=== PATIENT | female | born 1985 | race Caucasian/White ===

== ENCOUNTER 2020-07-07 06:31 | Day surgery (SDC) | payer OTHER ==
[~2020-07-07 06:31] MED LIST: Lactated Ringers 1,000 ML IV SCH; Sodium Chloride 0.9% 10 ML SDV IV PRN; Sodium Chloride 0.9% 10 ML Syringe FLUSH PRN; Sodium Chloride 0.9% 2.5 ML Syringe FLUSH PRN; ceFAZolin 2 GM in Premix Bag 1 BAG IV ONE
[2020-07-07] MEDS ORDERED: Propofol 200 MG/20 ML SDV ONE ×2 (06:53→07:16)
[2020-07-07] MEDS ORDERED: fentaNYL 100 MCG/2 ML SDV ONE ×2 (06:53→07:16)
[2020-07-07] MEDS ORDERED: Midazolam 1 MG/ML 2 ML SDV ONE ×2 (06:54→07:17)
--- NOTE | 2020-07-07 07:13 | PCM.PREANE ---
Preanesthetic Assessment - Anesthesia/Transfusion/Family Hx Anesthesia History: Prior Anesthesia Without Reaction Family History of Anesthesia Reaction: No Transfusion History: No Prior Transfusion(s) - Review of Systems General: No Symptoms Pulmonary: No Symptoms Cardiovascular: No Symptoms Gastrointestinal: No Symptoms Neurological: No Symptoms Other: Reports: None - Physical Assessment NPO Status Date: 07/06/20 Height: 5 ft 7 in Weight: 77.111 kg ASA Class: 2 Mental Status: Alert & Oriented x3 Airway Class: Mallampati = 2 Dentition: Reports: Normal Dentition ROM/Head Extension: Full Lungs: Clear to Auscultation, Normal Respiratory Effort Cardiovascular: Regular Rate, Regular Rhythm - Lab Values: Laboratory Last Values Urine HCG, Qual NEGATIVE (NEGATIVE) 07/07/20 06:45 - Allergies Allergies/Adverse Reactions: Allergies Allergy/AdvReac Type Severity Reaction Status Date / Time buspirone Allergy grinds Verified 07/01/20 09:39 teeth loratadine [From Claritin] Allergy grinds Verified 07/01/20 09:39 teeth, blinks a lot, gags - Blood Blood Available: No - Anesthesia Plan Pre-Op Medication Ordered: None - Acknowledgements Anesthesia Type Planned: General Anesthesia Pt an Appropriate Candidate for the Planned Anesthesia: Yes Alternatives and Risks of Anesthesia Discussed w Pt/Guardian: Yes Pt/Guardian Understands and Agrees with Anesthesia Plan: Yes Additional Comments: pmh: hld PLAN: ga/lma PreAnesthesia Questionnaire HEENT History: Reports: Impaired Vision Other HEENT History: wears glasses Cardiovascular History: Reports: None Respiratory History: Reports: None Gastrointestinal History: Reports: None Genitourinary History: Reports: None WELDING SPECIALIST History: Reports: Other OB/BYN History: Ovarian cyst, Bartholins cyst, Musculoskeletal History: Reports: None Neurological History: Reports: Concussion Psychiatric History: Reports: None Endocrine/Metabolic History: Reports: None Hematologic History: Reports: Other (See Below) Other Hematologic History: Gestational thrombocytopenia Immunologic History: Reports: None Oncologic (Cancer) History: Reports: None Dermatologic History: Reports: Eczema Other Dermatologic History: eczema on hands on occasion - Infectious Disease History Infectious Disease History: Reports: None - Past Surgical History Head Surgeries/Procedures: Reports: None HEENT Surgical History: Reports: Oral Surgery, Other (See Below) Other HEENT Surgeries/Procedures: wisdom teeth extracted, dental implant Cardiovascular Surgical History: Reports: None Respiratory Surgical History: Reports: None GI Surgical History: Reports: None Female Surgical History: Reports: Section Other Female Surgeries/Procedures: Ceasarean section 2008 Endocrine Surgical History: Reports: None Neurological Surgical History: Reports: None Musculoskeletal Surgical History: Reports: Ganglion Cyst Other Musculoskeletal Surgeries/Procedures:: excision of ganglion cyst-left wrist Oncologic Surgical History: Reports: None Dermatological Surgical History: Reports: None - SUBSTANCE USE Tobacco Use Status *Q: Former Tobacco User Tobacco Use Within Last Twelve Months: No Recreational Drug Use History: No - HOME MEDS Home Medications: Home Meds Krill/Pecos-3/Dha/Epa/Lipids [Krill Oil 300 mg Softgel] 1 each PO DAILY 07/01/20 [History] - CURRENT (IN HOUSE) MEDS Current Meds: Current Medications Lactated Ringer's (Ringers, Lactated) 1,000 mls @ 125 mls/hr IV ASDIRECTED ELICEO Sodium Chloride (Saline Flush) 2.5 ml FLUSH ASDIRECTED PRN PRN Reason: Keep Vein Open Sodium Chloride (Normal Saline) 10 ml IV ASDIRECTED PRN PRN Reason: IV Use Sodium Chloride (Saline Flush) 10 ml FLUSH ASDIRECTED PRN PRN Reason: Keep Vein Open Discontinued Medications Fentanyl (Sublimaze) Confirm Administered Dose 100 mcg .ROUTE .STK-MED ONE Stop: 07/07/20 06:54 Cefazolin Sodium/Dextrose 2 gm (/ Premix) 50 mls @ 100 mls/hr IV ONETIME ONE Stop: 07/04/20 14:46 Lidocaine HCl (Xylocaine-Mpf 1%) Confirm Administered Dose 5 ml .ROUTE .STK-MED ONE Stop: 07/07/20 06:55 Midazolam HCl (Versed 1 Mg/Ml) Confirm Administered Dose 2 mg .ROUTE .STK-MED ONE Stop: 07/07/20 06:55 Propofol (Diprivan 20 Ml) Confirm Administered Dose 200 mg .ROUTE .STK-MED ONE Stop: 07/07/20 06:54
[2020-07-07] MEDS ORDERED: Bupivacaine 0.5% 10 ML SDV ONE (07:14)
[2020-07-07] MEDS ORDERED: Ondansetron 4 MG/2 ML SDV ONE (07:22)
[2020-07-07] MEDS ORDERED: Glycopyrrolate 0.2 MG/ML SDV ONE (07:22)
[2020-07-07] MEDS ORDERED: Lidocaine 2% 5 ML SDV ONE (07:22)
[2020-07-07] MEDS ORDERED: Ketorolac 30 MG/ML SDV ONE (07:22)
[2020-07-07] MEDS ORDERED: Rocuronium Bromide 50 MG/5 ML Syringe ONE (07:22)
[2020-07-07] MEDS ORDERED: Sodium Chloride 0.9% 20 ML ONE (07:47)
[2020-07-07] MEDS ORDERED: ceFAZolin 1 GM Vial ONE (07:47)
[2020-07-07] MEDS ORDERED: Metoclopramide 10 MG/2 ML SDV ONE (07:57)
[2020-07-07] MEDS ORDERED: Octyl 2-Cyanoacrylate 1 Tube ONE (08:25)
--- NOTE | 2020-07-07 08:43 | PCM.OPNOTE ---
- General Post-Op/Procedure Note Date of Surgery/Procedure: 07/07/20 Operative Procedure(s): Umbilical hernia repair Findings: 8mm fascial defect Pre Op Diagnosis: Umbilical hernia reducible Post-Op Diagnosis: Umbilical hernia, reducible Anesthesia Technique: General LMA Primary Surgeon: Kassandra Meehan Condition: Good
[2020-07-07] MEDS ORDERED: Bupivacaine 0.5% 30 ML SDV ONE (09:49)
[2020-07-07 10:27] VITALS: BP 118/72; PULSE 72
--- NOTE | 2020-07-07 10:48 | PCM48HPAN ---
Post Anesthesia Note - EVALUATION WITHIN 48HRS OF ANESTHETIC Vital Signs in Normal Range: Yes Patient Participated in Evaluation: Yes Respiratory Function Stable: Yes Airway Patent: Yes Cardiovascular Function Stable: Yes Hydration Status Stable: Yes Pain Control Satisfactory: Yes Nausea and Vomiting Control Satisfactory: Yes Mental Status Recovered: Yes Vital Signs: Last Vital Signs Temp 98.1 F 07/07/20 08:36 Pulse 72 07/07/20 09:25 Resp 15 07/07/20 09:25 BP 118/72 07/07/20 09:25 Pulse Ox 97 07/07/20 09:25
--- NOTE | 2020-07-07 10:48 | PCM.POSTAN ---
POST ANESTHESIA ASSESSMENT - MENTAL STATUS Mental Status: Alert, Oriented - VITAL SIGNS Vital Signs: Last Vital Signs Temp 98.1 F 07/07/20 08:36 Pulse 72 07/07/20 09:25 Resp 15 07/07/20 09:25 BP 118/72 07/07/20 09:25 Pulse Ox 97 07/07/20 09:25 - RESPIRATORY Respiratory Status: Respiratory Rate WNL, Airway Patent - CARDIOVASCULAR CV Status: Pulse Rate WNL - GASTROINTESTINAL GI Status: No Symptoms - POST OP HYDRATION Hydration Status: Adequate & Stable
--- NOTE | 2020-07-07 12:07 | OR ---
SURGEON: KASSANDRA MEEHAN MD DATE OF PROCEDURE: 07/07/2020 PREOPERATIVE DIAGNOSIS: Umbilical hernia. POSTOPERATIVE DIAGNOSIS: Umbilical hernia. PROCEDURE PERFORMED: Umbilical hernia repair. PRIMARY SURGEON: Kassandra Meehan MD. ANESTHESIA: General LMA. FLUIDS: See Anesthesia record. ESTIMATED BLOOD LOSS: 5 mL. FINDINGS: 8 mm fascial defect just above the umbilical stalk. The hernia sac was reducible and contained fat. COMPLICATIONS: None. INDICATIONS: The patient is a 34-year-old female who presents with a symptomatic umbilical hernia. The patient and I discussed the need for repair. I explained the procedure, expected perioperative course, and the risks including bleeding, infection, or damage to surrounding structures. The patient verbalized understanding and wishes to proceed. PROCEDURE IN DETAIL: The patient was brought into the OR and placed on the OR table in supine position. A time-out was completed verifying the patient's name, age, date of , allergies, and procedure to be performed. General LMA anesthesia was induced. The abdomen was then prepped and draped in usual standard fashion. I anesthetized the supraumbilical midline with 0.5% Marcaine plain. A 15 blade was used to make an incision along the supraumbilical fold just below the patient's previous bellybutton ring. Cautery was then used to dissect down to the level of subcutaneous fat. I immediately encountered a hernia sac. Using blunt dissection with a hemostat and sharp dissection with the Metzenbaum scissors, I dissected the hernia sac free from the surrounding subcutaneous fat. Using sharp dissection, I dissected the hernia sac off the overlying umbilical skin. While doing this, I made a small rent in the hernia sac. It contained fat which I had already reduced back into the abdomen. I then dissected down to the level of the fascial defect. The hernia sac was grasped and excised using electrocautery. It was passed off the field labeled as hernia sac. The fascial defect was measured. It measured 8 mm in size. I closed the fascial defect with interrupted 0 Ethibond sutures. The patient was given a Valsalva maneuver and the repair appeared to be intact. Hemostasis was achieved with electrocautery. I then closed the subcutaneous fat layer using interrupted layers of 3-0 Vicryl suture. The skin was then closed with a running 4-0 Monocryl stitch. Dermabond and a sterile dressing were applied. The patient tolerated the procedure well and was transferred to the PACU in stable condition. CHYNA CALDERON /[id number]
== END 2020-07-07 10:03 | disposition home or self-care (01) ==
LOC: MW.SDS 06:31
PROVIDERS: ATTEND Surgery
DX: K42.9 Umbilical hernia without obstruction or gangrene (principal); E78.00 Pure hypercholesterolemia, unspecified; Z88.8 Allergy status to other drugs, medicaments and biological substances; Z79.899 Other long term (current) drug therapy; Z98.890 Other specified postprocedural states
CPT/HCPCS: 49585; 81025; A9270; J0690; J1885; J2001; J2250; J2405; J2704; J2765; J3010; J3490; J7120